=== PATIENT | female | born 2000 | race Two or more races ===

== ENCOUNTER 2019-11-26 06:07 | Inpatient (IN) | payer MEDICAID ==
[2019-11-26 06:43] LABS: APPEARANCE,URINE SLIGHTLY-CLOUDY; BILIRUBIN,URINE NEGATIVE (NEGATIVE); COLOR,URINE YELLOW; GLUCOSE, URINE NEGATIVE (NEGATIVE); KETONES,URINE NEGATIVE (NEGATIVE); LEUKOCYTE ESTERASE,URINE TRACE (NEGATIVE); NITRITE,URINE NEGATIVE (NEGATIVE); PROTEIN,URINE 100 mg/dL (NEGATIVE); URINE SPECIFIC GRAVITY 1.028; UROBILINOGEN,URINE NEGATIVE mg/dL (<2.0)
[2019-11-26 07:00] LABS: URINE AMPHETAMINES SCREEN NEGATIVE; URINE BARBITURATES SCREEN NEGATIVE; URINE BENZODIAZEPINES SCREEN NEGATIVE; URINE COCAINE SCREEN NEGATIVE; URINE MARIJUANA (THC) SCREEN NEGATIVE; URINE METHADONE SCREEN NEGATIVE; URINE PHENCYCLIDINE SCREEN NEGATIVE
[2019-11-26] MEDS ORDERED: RINGERS SOLUTION,LACTATED 1,000 ML IV PRN ×2 (07:09→17:25)
[2019-11-26] MEDS ORDERED: RINGERS SOLUTION,LACTATED 1,000 ML IV ONE (07:09)
--- NOTE | 2019-11-26 07:42 | Admission Physical ---
Datetime Report Generated by CPN: 11/26/2019 07:42 CURRENT ADMISSION Chief Complaint: Uterine Contractions Indication for Induction: Not Applicable Admit Impression : Term, Intrauterine ; Active Labor; Intact Membranes Admit Plan: Admit to Unit; Initiate Labor Protocol ALLERGIES Medication Allergies: No Medication Allergies: No Known Allergies (11/26/2019) Latex: No Latex Allergies OBSTETRICAL HISTORY EDC: 11/26/2019 00:00 : 1 Para: 0 Term: 0 : 0 SAB: 0 IAB: 0 Ectopic: 0 Livin Cesareans: 0 VBACs: 0 Multiple Births: 0 Gestational Diabetes: No Rh Sensitization: No Incompetent Cervix: No LATRICIA: No Infertility: No ART Treatment: No Uterine Anomaly: No IUGR: No Hx Previous C/S: No Macrosomia: No Hx Loss/Stillborn: No PIH: No Hx : No Placenta Previa/Abruption: No Depression/PP Depression: No PTL/PROM: No Post Hemorrhage: No Current Procedures: Ultrasound Obstetrical History Comments: G1- current SEE RECORDS Alcohol: No Marijuana : No Cocaine: No Other Illicit Drugs: No Cigarettes: Never Smoker. [id number] MEDICAL HISTORY Diabetes: No Blood Transfusion: No Pulmonary Disease (Asthma, TB): No Breast Disease: No Hypertension: No Chief Inspector Surgery: No Heart Disease: No Hosp/Surgery: Yes Autoimmune Disorder: No Anesthetic Complications: No Kidney Disease: Yes Abnormal Pap Smear: No Neuro/Epilepsy: No Psychiatric Disorders: No Other Medical Diseases: No Hepatitis/Liver Disease: No Significant Family History: No Varicosities/Phlebitis: No Trauma/Violence : No Thyroid Dysfunction: No Medical History Comments: UTI in childhood, hospitalized after seizure in 2014 INFECTIOUS HISTORY Gonorrhea: No Genital Herpes: No Chlamydia: No Tuberculosis: No Syphilis: No Hepatitis: No HIV/AIDS Exposure: No Rash or Viral Illness: No HPV: No PHYSICAL EXAM General: Normal HEENT: Normal Neurologic: Normal Thyroid: Deferred Heart: Normal Lungs: Normal Breast: Deferred Back: Normal Abdomen: Normal Genitourinary Exam: Normal Extremities: Normal DTRs: Normal Pelvic Type: Adequate Vital Signs: Reviewed VAGINAL EXAM Dilatation: 4 Effacement: 80 Station: -2 Contraction Comments: q 2-3 MEMBRANES Membranes: Intact FETUS A EGA: 40.0 Monitoring: External US FHR- Baseline: 130 Variability: Moderate 6-25bpm Accelerations: 15X15 Decelerations: None FHR Category: Category I Presentation: Vertex Admit Comment: 19yo at 40+0ega presents for regular uterine contractions. She has a seizure disorder and see Dr. Prince - on keppra and extra folic acid. GBS negative. [facility] transfer at 28wks. Admit to labor and delivery. labs done. Epidural upon patient request. Anticpate . reassuring FWB. PLANS FOR LABOR AND DELIVERY Labor and Delivery: Plan Pain Management: Epidural Feeding Preference: Breast Benefit of Breast Feed Discussed: Yes Circumcision: N/A INFORMED CONSENT Informed Consent Obtained: Vaginal Delivery; Risks, Benefits and Alternatives Discussed Signature: with User ID: [email or web address]
[2019-11-26 07:54] LABS: ABSOLUTE LYMPHOCYTES (AUTO) 1.5 10^3/uL (0.5-4.7); ABSOLUTE MONOCYTES (AUTO) 0.7 10^3/uL (0.1-1.4); BASOPHILS % (AUTO) 0.2 % (0-2); EOSINOPHILS % (AUTO) 0.3 % (0-6); HEMATOCRIT 36.2 % (36.0-47.0); HEMOGLOBIN 12.6 g/dL (12.0-15.5); LYMPHOCYTES % (AUTO) 12.5 % (13-45); MEAN CORPUSCULAR HEMOGLOBIN 28.8 pg (27.0-33.4); MEAN CORPUSCULAR HGB CONC 34.7 g/dL (32.0-36.0); MEAN CORPUSCULAR VOLUME 83 fl (80-97); MONOCYTES % (AUTO) 5.8 % (3-13); PLATELET COUNT 185 10^3/uL (150-450); RED BLOOD COUNT 4.37 10^6/uL (3.72-5.28); RED CELL DISTRIBUTION WIDTH 15.9 % (11.5-14.0); SEGMENTED NEUTROPHILS % (AUTO) 81.2 % (42-78); TOTAL CELLS COUNTED % (AUTO) 100 %; WHITE BLOOD COUNT 12.3 10^3/uL (4.0-10.5)
[2019-11-26 09:41] LABS: ALBUMIN 3.6 g/dL (3.5-5.0); ALKALINE PHOSPHATASE 237 U/L (38-126); ANION GAP 11 (5-19); ASPARTATE AMINO TRANSFERASE 22 U/L (14-36); BILIRUBIN,TOTAL 0.4 mg/dL (0.2-1.3); BLOOD UREA NITROGEN 11 mg/dL (7-20); CALCIUM 9.3 mg/dL (8.4-10.2); CARBON DIOXIDE 20 mmol/L (22-30); CHLORIDE 103 mmol/L (98-107); GLUCOSE 82 mg/dL (75-110); POTASSIUM 4.3 mmol/L (3.6-5.0); TOTAL PROTEIN 6.9 g/dL (6.3-8.2); URIC ACID 5.9 mg/dL (2.5-6.2)
[2019-11-26] MEDS ORDERED: LEVETIRACETAM 500 MG TABLET PO SCH (10:00)
[2019-11-26 11:19] LABS: UR PRO/CREAT RATIO RESULT 0.3 mg/mg (0.0-0.2); URINE CREATININE 134.6 mg/dL (16-327); URINE PROTEIN 39.7 mg/dL (<12)
[2019-11-26] MEDS ORDERED: OXYTOCIN 10 UNIT/ML VIAL ONE ×2 (11:21→17:41)
[2019-11-26] MEDS ORDERED: LIDOCAINE 1% INJ-PF (10 MG/ML) 30 ML SDV ONE (11:21)
[2019-11-26] MEDS ORDERED: MISOPROSTOL 0.2 MG TABLET ONE (11:21)
[2019-11-26] MEDS ORDERED: OXYTOCIN/NORMAL SALINE 0 UNIT/0 ML RTUINJ ONE (11:21)
[2019-11-26] MEDS ORDERED: MORPHINE SULFATE 10 MG/ML INJ IV ONE (17:11)
[2019-11-26] MEDS ORDERED: PROMETHAZINE HCL INJ 25 MG/1 ML VIAL IV ONE (17:12)
[2019-11-26] MEDS ORDERED: CITRIC ACID/SODIUM CITRATE ORAL SOLN 15 ML UDCUP ONE (17:23)
[2019-11-26] MEDS ORDERED: CEFAZOLIN 1 GM/D5W RTU 2 GM/100 ML RTUPB IV ONE (17:23)
[2019-11-26] MEDS ORDERED: HYDROMORPHONE HCL INJ/PF 2 MG/ML AMPULE IV PRN (17:25)
[2019-11-26] MEDS ORDERED: SIMETHICONE 80 MG TAB.CHEW PO PRN (17:25)
[2019-11-26] MEDS ORDERED: ACETAMINOPHEN 1,000 MG/100 ML RTUPB IV PRN (17:25)
[2019-11-26] MEDS ORDERED: PROMETHAZINE HCL INJ 25 MG/1 ML VIAL IV PRN (17:25)
[2019-11-26] MEDS ORDERED: DIPH/PERTUSS(ACELL)/TETANUS VAC/PF 0.5 ML SYR (>=10YO) IM PRN (17:25)
[2019-11-26] MEDS ORDERED: ACETAMINOPHEN 325 MG TABLET PO PRN (17:25)
[2019-11-26] MEDS ORDERED: MEASLES,MUMPS&RUBELLA VACC/PF 0.5 ML VIAL SUBCUT PRN (17:25)
[2019-11-26] MEDS ORDERED: OXYTOCIN/NORMAL SALINE 20 UNIT/1,000 ML RTUINJ IV PRN (17:25)
[2019-11-26] MEDS ORDERED: OXYCODONE-ACETAMINOPHEN 5-325 MG TABLET PO PRN ×2 (17:25)
[2019-11-26] MEDS ORDERED: OXYTOCIN/NORMAL SALINE 20 UNIT/1,000 ML RTUINJ ONE (17:41)
[2019-11-26] MEDS ORDERED: MIDAZOLAM 2 MG/2 ML INJ ONE (17:41)
[2019-11-26] MEDS ORDERED: ONDANSETRON HCL INJ/PF 4 MG/2 ML SDV ONE (17:41)
[2019-11-26] MEDS ORDERED: MORPHINE SULFATE 10 MG/ML INJ ONE (17:41)
--- NOTE | 2019-11-26 18:47 | Operative Report ---
Operative Report DATE OF SURGERY: 11/26/19 PREOPERATIVE DIAGNOSIS: Repetitive late decelerations thick meconium persistent OP presentation POSTOPERATIVE DIAGNOSIS: Same OPERATION: Primary via low transverse uterine incision SURGEON: VANESSA HALE ANESTHESIA: Spinal TISSUE REMOVED OR ALTERED: Placenta COMPLICATIONS: None ESTIMATED BLOOD LOSS: 250 cc INTRAOPERATIVE FINDINGS: Viable female thick meconium persistent OP presentation PROCEDURE: Patient was taken to the OR and placed in supine position after her spinal anesthesia. She is prepared and draped in sterile fashion. Velazquez was placed for drainage of the bladder. Low transverse incision was made and carried down the level of the fascia. The fascial incision was made with knife and extended bilaterally with curved Dumont scissors. The fascia was off the rectus muscles using sharp and blunt dissection. The rectus muscles are in the midline. The peritoneum was entered without incident. Bladder blade was placed in uterine segment was identified. A low transverse incision was made creating a bladder flap. Bladder blade was placed low transverse uterine incision was made with the knife and extended with fingertips. Thick pea green meconium was noted. The baby was delivered with some fundal pressure. Mouth and nose were suctioned free. The cord is doubly clamped and cut. Baby is passed off to the counseling program leader in attendance. The placenta was manually extracted with trailing membranes. The uterus was externalized wrapped in a moist lap sponge. Uterine contents wiped free. Uterus was closed with a running locking layer of 0 chromic suture using the second layer to imbricate th e first completing a double layer closure of the uterus. The serosa was closed with a running 2-0 chromic stitch. The pelvis was irrigated and suctioned free of fluid the uterus was replaced in the abdomen. The abdominal wall peritoneum was closed with running 2-0 chromic stitch. Fascia was closed with a running 0 Vicryl in 2 segments. Pete's layer was brought together with 0 plain gut stit ch and the skin was closed with running subcuticular 4-0 undyed Vicryl stitch. The wound was dressed mother and baby did well.
--- NOTE | 2019-11-26 19:57 | Delivery Summary ---
Del Sum A-C Datetime Report Generated by CPN: 11/26/2019 19:57 DELIVERY PERSONNEL DELIVERY PERSONNEL: [id number] Delivery Doctor:: Ghazala Barber MD Anesthesiologist:: Dr. Bajwa BINDING CUTTER SYNTHETIC CLOTH:: Tavon Yousif CRNA Pressure Supervisor:: Carissa Ryan RN Field Account Director/AMPOULE EXAMINER: Anju Arizmendi CST Field Account Director/AMPOULE EXAMINER: Maria Esther Carrasco, MIX TECHNICIAN MATERNAL INFORMATION Delivery Anesthesia: Spinal Medications After Delivery: Pitocin Bolus-Please Comment; Pitocin Drip 20 Units/1000ml NSS Meds After Delivery Comment: 2 bags of Pitocin Delivery QBL: 620 Maternal Complications: None LABOR SUMMARY EDC: 11/26/2019 00:00 No. Babies in Womb: 1 Attempted: No Labor Anesthesia: None LABOR INFORMATION Reason for Induction: Not Applicable Onset of Labor: 11/26/2019 11:30 Oxytocin: N/A Group B Beta Strep: negative Antibiotics # of Doses: 0 Steroids Given: None Reason Steroids Not Administered: Not Applicable MEMBRANES Membranes Rupture Method: Artificial Rupture of Membranes: 11/26/2019 11:12 Length of Rupture (hr): 7.07 Amniotic Fluid Color: Heavy Meconium Amniotic Fluid Amount: Small Amniotic Fluid Odor: Normal STAGES OF LABOR Stage 3 hr: 0 Stage 3 min: 1 Total Time in Labor hr: 6 Total Time in Labor min: 47 VAGINAL DELIVERY Laceration Extension #1: N/A Laceration Repair: Not Applicable CSECTION DELIVERY Primary Indication: Nonreassuring Status Secondary Indication: Secondary Arrest of Dilatation CSection Urgency: Non-Scheduled CSection Incidence: Primary Labor: Labor Elective: Nonelective CSection Incision: Lower Uterine Transverse; T Extension of Incision BABY A INFORMATION Delivery Date/Time: 11/26/2019 18:16 Method of Delivery: Nurse Controlled Delivery: No Born in Route : No : N/A Forceps: N/A Vacuum Extraction: N/A Shoulder Dystocia : No PRESENTATION/POSITION BABY A Presentation: Cephalic Cephalic Presentation: Vertex Breech Presentation: N/A PLACENTA INFORMATION BABY A Placenta Delivery Time : 11/26/2019 18:17 Placenta Method of Delivery: Manual Removal Placenta Status: Delivered SCORES BABY A Heart Rate 1 min: >100 bpm Resp Effort 1 min: Good Cry Reflex Irritability 1 min: Cough or Sneeze or Pulls Away Muscle Tone 1 min: Active Motion Color 1 min: Blue/Pale Resuscitation Effort 1 min: Tactile Stimulation SCORE 1 MIN: 8 Heart Rate 5 min: >100 bpm Resp Effort 5 min: Good Cry Reflex Irritability 5 min: Cough or Sneeze or Pulls Away Muscle Tone 5 min: Active Motion Color 5 min: Body Apex, Extremities Blue Resuscitation Effort 5 min: Tactile Stimulation SCORE 5 MIN: 9 INFANT INFORMATION BABY A Gestational Age at Delivery: 40.0 Gestational Status: Full Term- 39- 40.6 Weeks Outcome : Liveborn Infant Condition : Stable Sex: Female WEIGHT/LENGTH BABY A Birthweight (gm): 2960 Infant Weight (lb): 6 Weight (oz): 8 Infant Length (in): 20.50 Length (cm): 52.07 CORD INFORMATION BABY A No. Cord Vessels: 3 Nuchal Cord : N/A Cord Blood Taken: Yes-For Eval (Mom's Blood Type - or O+) Infant Suction: Nose ASSESSMENT BABY A Skin to Skin: No Skin to Skin Time (min): 60 BABY B INFORMATION : N/A SIGNATURES Signature: with User ID: [email or web address]
[2019-11-26] MEDS ORDERED: ACETAMINOPHEN 1,000 MG/100 ML RTUPB IV ONE (20:06)
[2019-11-26] MEDS ORDERED: MAGNESIUM SULFATE 4 GM/100 ML RTUPB IV ONE (20:54)
[2019-11-26] MEDS ORDERED: MAGNESIUM SULFATE 20 GM/500 ML RTUINJ IV ONE (21:27)
[2019-11-26] MEDS ORDERED: KETOROLAC TROMETHAMINE INJ/PF 30 MG/1 ML SDV ONE (22:52)
[2019-11-26] MEDS: KETOROLAC TROMETHAMINE INJ/PF 30 MG/1 ML SDV IV SCH (23:00)
--- NOTE | 2019-11-27 00:43 | Warning Signs in Babies ---
VOD Warning Signs Datetime Report Generated by [facility]: 11/27/2019 00:42 VOD#608 -Warning Signs in Babies: Viewed with Parent(s)/Family (11/26/2019 22:00:Farnaz Soto RN)
[2019-11-27] MEDS: IBUPROFEN 800 MG TABLET PO SCH ×5 (01:10→23:20)
[2019-11-27] MEDS ORDERED: KETOROLAC TROMETHAMINE INJ/PF 30 MG/1 ML SDV ONE ×2 (05:02→14:07)
[2019-11-27] MEDS: KETOROLAC TROMETHAMINE INJ/PF 30 MG/1 ML SDV IV SCH ×2 (05:05→14:13)
[2019-11-27 07:07] LABS: HEMATOCRIT 32.8 % (36.0-47.0); HEMOGLOBIN 11.1 g/dL (12.0-15.5); MEAN CORPUSCULAR HEMOGLOBIN 28.3 pg (27.0-33.4); MEAN CORPUSCULAR HGB CONC 33.8 g/dL (32.0-36.0); MEAN CORPUSCULAR VOLUME 84 fl (80-97); PLATELET COUNT 159 10^3/uL (150-450); RED BLOOD COUNT 3.92 10^6/uL (3.72-5.28); RED CELL DISTRIBUTION WIDTH 15.6 % (11.5-14.0); WHITE BLOOD COUNT 12.5 10^3/uL (4.0-10.5)
[2019-11-27] MEDS ORDERED: MAGNESIUM SULFATE 20 GM/500 ML RTUINJ IV ONE (08:49)
--- NOTE | 2019-11-27 08:51 | PDOC PROGRESS REPORT ---
Subjective Progress Note for:: 11/27/19 Subjective:: pt states she feels well and has no complaints Reason For Visit: Physical Exam - Physical Exam Vital Signs: Intake & Output 11/26/19 11/27/19 11/28/19 06:59 06:59 06:59 Weight 101.1 kg General appearance: PRESENT: no acute distress Respiratory exam: PRESENT: clear to auscultation marcus Cardiovascular exam: PRESENT: RRR GI/Abdominal exam: PRESENT: other - incision dressing intact Result Laboratory Results: 11/27/19 06:35 11/26/19 07:30 11/26/19 11/27/19 07:30 06:35 WBC 12.5 H RBC 3.92 Hgb 11.1 L Hct 32.8 L MCV 84 MCH 28.3 MCHC 33.8 RDW 15.6 H Plt Count 159 Sodium 134.2 L Potassium 4.3 Chloride 103 Carbon Dioxide 20 L Anion Gap 11 BUN 11 Creatinine 0.54 Est GFR ( Amer) > 60 Glucose 82 Uric Acid 5.9 Calcium 9.3 Total Bilirubin 0.4 AST 22 Alkaline Phosphatase 237 H Total Protein 6.9 Albumin 3.6 Assessment & Plan - Time Time Spent with patient: Less than 15 minutes Medications reviewed and adjusted accordingly: Yes Anticipated discharge: Other - d/c in am - Plan Summary Plan Summary: continue Mag for 24 hours total and routine post post op care
[2019-11-27] MEDS: DOCUSATE SODIUM 100 MG CAPSULE PO SCH ×2 (10:51→20:29)
[2019-11-27] MEDS ORDERED: PRENATAL VITAMIN W DHA CAPSULE PO ONE (10:57)
[2019-11-27] MEDS ORDERED: DOCUSATE SODIUM 100 MG CAPSULE ONE ×2 (10:57→20:27)
[2019-11-27] MEDS: PRENATAL VITAMIN W DHA CAPSULE PO SCH (10:59)
[2019-11-27] MEDS ORDERED: IBUPROFEN 800 MG TABLET ONE (20:27)
[2019-11-27] MEDS ORDERED: LEVETIRACETAM 500 MG TABLET PO SCH (22:00)
[2019-11-28] MEDS: IBUPROFEN 800 MG TABLET PO SCH (05:19)
[2019-11-28 08:01] VITALS: BP 141/71
[2019-11-28] MEDS: DOCUSATE SODIUM 100 MG CAPSULE PO SCH (09:32)
[2019-11-28] MEDS: PRENATAL VITAMIN W DHA CAPSULE PO SCH (09:32)
--- NOTE | 2019-11-28 11:35 | PDOC DISCHARGE SUMMARY ---
Impression - Admit/DC Date/PCP Admission Date/Primary Care Provider: 11/26/19 06:53 ANI GAMEZ MD Discharge Date: 11/28/19 - Discharge Diagnosis (1) Active labor at term Is this a current diagnosis for this admission?: Yes (2) Non-reassuring electronic monitoring tracing Is this a current diagnosis for this admission?: Yes (3) hypertension Is this a current diagnosis for this admission?: Yes (4) Seizure disorder during Is this a current diagnosis for this admission?: Yes (5) Status post primary low transverse section Is this a current diagnosis for this admission?: Yes - Assessment Summary: s/p primary ppd2. Stable, ready for discharge. Occasional mild range BPs, will give rx for electric blood pressure monitor, will take bp twice daily and call office with readings Tuesday. Reviewed warning s/s and reasons to present to [facility] or call clinic prior to next visit. Pt. asked questions and verbalized understanding. Scheduled incision check - Additional Information Resuscitation Status: Full Code Discharge Diet: As Tolerated, Regular Discharge Activity: Activity As Tolerated, Balance Activity w/Rest, No Driving, No Lifting Over 10 Pounds, Pelvic Rest, No tub bath, Walk Frequently Referrals: ANI GAMEZ MD [Primary Care Provider] - 12/03/19 3:00 pm (CALL THE OFFICE FOR QUESTIONS AND CONCERNS.) Prescriptions: Ibuprofen [Motrin 800 mg Tablet] 800 mg PO Q8HP PRN #20 tablet PRN Reason: For Pain Scale 1-3 Docusate Sodium [Colace 100 mg Capsule] 100 mg PO BID #60 capsule Home Medications: Levetiracetam [Keppra] 1,500 mg PO DAILY 11/26/19 Prenat 115/Iron Fum/Folic/Dss [ 19 Tablet] 1 tab PO DAILY 11/26/19 Docusate Sodium [Colace 100 mg Capsule] 100 mg PO BID #60 capsule 11/28/19 Ibuprofen [Motrin 800 mg Tablet] 800 mg PO Q8HP PRN #20 tablet 11/28/19 Results Laboratory Results: WBC 12.5 10^3/uL (4.0-10.5) H 11/27/19 06:35 RBC 3.92 10^6/uL (3.72-5.28) 11/27/19 06:35 Hgb 11.1 g/dL (12.0-15.5) L 11/27/19 06:35 Hct 32.8 % (36.0-47.0) L 11/27/19 06:35 MCV 84 fl (80-97) 11/27/19 06:35 MCH 28.3 pg (27.0-33.4) 11/27/19 06:35 MCHC 33.8 g/dL (32.0-36.0) 11/27/19 06:35 RDW 15.6 % (11.5-14.0) H 11/27/19 06:35 Plt Count 159 10^3/uL (150-450) 11/27/19 06:35 Lymph % (Auto) 12.5 % (13-45) L 11/26/19 07:30 [place] % (Auto) 5.8 % (3-13) 11/26/19 07:30 Eos % (Auto) 0.3 % (0-6) 11/26/19 07:30 Baso % (Auto) 0.2 % (0-2) 11/26/19 07:30 Absolute Neuts (auto) 10.0 10^3/uL (1.7-8.2) H 11/26/19 07:30 Absolute Lymphs (auto) 1.5 10^3/uL (0.5-4.7) 11/26/19 07:30 Absolute Monos (auto) 0.7 10^3/uL (0.1-1.4) 11/26/19 07:30 Absolute Eos (auto) 0.0 10^3/uL (0.0-0.6) 11/26/19 07:30 Absolute Basos (auto) 0.0 10^3/uL (0.0-0.2) 11/26/19 07:30 Seg Neutrophils % 81.2 % (42-78) H 11/26/19 07:30 Sodium 134.2 mmol/L (137-145) L 11/26/19 07:30 Potassium 4.3 mmol/L (3.6-5.0) 11/26/19 07:30 Chloride 103 mmol/L (98-107) 11/26/19 07:30 Carbon Dioxide 20 mmol/L (22-30) L 11/26/19 07:30 Anion Gap 11 (5-19) 11/26/19 07:30 BUN 11 mg/dL (7-20) 11/26/19 07:30 Creatinine 0.54 mg/dL (0.52-1.25) 11/26/19 07:30 Est GFR ( Amer) > 60 (>60) 11/26/19 07:30 Est GFR (MDRD) Non-Af > 60 (>60) 11/26/19 07:30 Glucose 82 mg/dL (75-110) 11/26/19 07:30 Uric Acid 5.9 mg/dL (2.5-6.2) 11/26/19 07:30 Calcium 9.3 mg/dL (8.4-10.2) 11/26/19 07:30 Total Bilirubin 0.4 mg/dL (0.2-1.3) 11/26/19 07:30 Direct Bilirubin 0.0 mg/dL (0.0-0.4) 11/26/19 07:30 Neonat Total Bilirubin Not Reportable 11/26/19 07:30 Neonat Direct Bilirubin Not Reportable 11/26/19 07:30 Neonat Indirect Bili Not Reportable 11/26/19 07:30 AST 22 U/L (14-36) 11/26/19 07:30 ALT 12 U/L (<35) 11/26/19 07:30 Alkaline Phosphatase 237 U/L (38-126) H 11/26/19 07:30 Lactate Dehydrogenase 173 U/L (120-246) 11/26/19 07:30 Total Protein 6.9 g/dL (6.3-8.2) 11/26/19 07:30 Albumin 3.6 g/dL (3.5-5.0) 11/26/19 07:30 Urine Color YELLOW 11/26/19 06:17 Urine Appearance SLIGHTLY-CLOUDY 11/26/19 06:17 Urine pH 5.0 (5.0-9.0) 11/26/19 06:17 Ur Specific [employer] 1.028 11/26/19 06:17 Urine Protein 100 mg/dL (NEGATIVE) H 11/26/19 06:17 Urine Glucose (UA) NEGATIVE mg/dL (NEGATIVE) 11/26/19 06:17 Urine Ketones NEGATIVE mg/dL (NEGATIVE) 11/26/19 06:17 Urine Blood SMALL (NEGATIVE) H 11/26/19 06:17 Urine Nitrite NEGATIVE (NEGATIVE) 11/26/19 06:17 Urine Bilirubin NEGATIVE (NEGATIVE) 11/26/19 06:17 Urine Urobilinogen NEGATIVE mg/dL (<2.0) 11/26/19 06:17 Ur Leukocyte Esterase TRACE (NEGATIVE) H 11/26/19 06:17 Urine Creatinine 134.6 mg/dL (16-327) 11/26/19 09:22 Protein/Creatinin Ratio 0.3 mg/mg (0.0-0.2) H 11/26/19 09:22 Urine Total Protein 39.7 mg/dL (<12) H 11/26/19 09:22 Urine Ascorbic Acid NEGATIVE (NEGATIVE) 11/26/19 06:17 Membranes Rupture NEGATIVE (NEGATIVE) 11/26/19 07:50 Urine Opiates Screen NEGATIVE 11/26/19 06:17 Urine Methadone Screen NEGATIVE 11/26/19 06:17 Ur Barbiturates Screen NEGATIVE 11/26/19 06:17 Ur Phencyclidine Scrn NEGATIVE 11/26/19 06:17 Ur Amphetamines Screen NEGATIVE 11/26/19 06:17 U Benzodiazepines Scrn NEGATIVE 11/26/19 06:17 Urine Cocaine Screen NEGATIVE 11/26/19 06:17 U Marijuana (THC) Screen NEGATIVE 11/26/19 06:17 RPR NONREACTIVE (NONREACTIVE) 11/26/19 07:30 Blood Type O NEGATIVE 11/27/19 06:35 Antibody Screen NEGATIVE 11/26/19 07:30 Screen NEGATIVE 11/27/19 06:35
== END 2019-11-28 13:07 | disposition home or self-care (01) | DRG 787 ==
LOC: LC 06:07 → LR 06:53 → 2S 11-27 22:33
PROVIDERS: ADMIT Obstetrics & Gynecology; ATTEND Obstetrics & Gynecology
PROC: 10D00Z1 Extraction of Products of Conception, Low, Open Approach (ICD-10-PCS; principal; 2019-11-26)
PROC: 3E0234Z Introduction of Serum, Toxoid and Vaccine into Muscle, Percutaneous Approach (ICD-10-PCS; 2019-11-28)
DX: O26.893 Other specified pregnancy related conditions, third trimester (principal); O99.354 Diseases of the nervous system complicating childbirth; O76 Abnormality in fetal heart rate and rhythm complicating labor and delivery; G40.909 Epilepsy, unspecified, not intractable, without status epilepticus; O77.0 Labor and delivery complicated by meconium in amniotic fluid; O64.0XX0 Obstructed labor due to incomplete rotation of fetal head, not applicable or unspecified; O62.1 Secondary uterine inertia; Z67.41 Type O blood, Rh negative; Z3A.40 40 weeks gestation of pregnancy; Z37.0 Single live birth
CPT/HCPCS: 1961; 36415; 80053; 80307; 81005; 82570; 83615; 84112; 84156; 84550; 85025; 85027; 85461; 86592; 86850; 86900; 86901; 94760; J0131; J0690; J1885; J2250; J2270; J2405; J2590; J2790; J3475; J3490